=== PATIENT | male | born 1955 | race Caucasian/White ===

== ENCOUNTER 2016-05-20 06:21 | Day surgery (SDC) | payer OTHER ==
[2016-05-19 13:51] VITALS: BMI 20.0
[~2016-05-20] VITALS: Ht 180.3 cm; Wt 68.0 kg
[2016-05-20] VITALS (13 sets, daily range): BP systolic 113–142; BP diastolic 63–88; PULSE 50–70; RESP 10–20; Ht 180.3 cm; Wt 68.0 kg
[2016-05-20] MEDS ORDERED: LAMO100T83 PO (08:08)
[2016-05-20] MEDS ORDERED: GABA300C16 PO (08:08)
[2016-05-20] MEDS ORDERED: LIT300 PO (08:08)
[2016-05-20] MEDS ORDERED: ARIP5TAB7 PO (08:08)
--- NOTE | 2016-05-20 08:20 | HPN ---
Date/Time of Note Date/Time of Note DATE: 05/20/16 TIME: 08:20 Interval H&P Admission Note Pt. seen H&P reviewed: No system changes BRANDIE POLANCO MD May 20, 2016 08:20
[2016-05-20] MEDS ORDERED: BUPIVACAINE 0.25% (MPF) 30 ML INJ ONE (08:31)
[2016-05-20] MEDS ORDERED: MIDAZOLAM 1 MG/ML 2 ML INJ ONE (08:49)
[2016-05-20] MEDS ORDERED: FENTAnyl 50 MCG/ML VIAL ONE (08:49)
[2016-05-20] MEDS ORDERED: CEFAZOLIN 1 GM INJ ONE ×2 (08:59→09:45)
[2016-05-20] MEDS ORDERED: ONDANSETRON 4 MG INJ IV PRN ×2 (09:30→10:00)
[2016-05-20] MEDS ORDERED: DIPHENHYDRAMINE 50 MG INJ IV PRN (09:30)
[2016-05-20] MEDS ORDERED: METOCLOPRAMIDE 10 MG INJ IV PRN (09:30)
[2016-05-20] MEDS ORDERED: MEPERIDINE 25 MG INJ IV PRN (09:30)
[2016-05-20] MEDS ORDERED: HYDROmorphONE (0.2 MG/ML) 10ML SYG IV PRN ×2 (09:30)
[2016-05-20] MEDS ORDERED: METOCLOPRAMIDE 10 MG INJ ONE (09:35)
[2016-05-20] MEDS ORDERED: ONDANSETRON 4 MG INJ ONE (09:35)
[2016-05-20] MEDS ORDERED: GLYCOPYRROLATE 1 MG INJ ONE (09:39)
[2016-05-20] MEDS ORDERED: NEOSTIGMINE 3 MG/3 ML SYRINGE ONE (09:39)
[2016-05-20] MEDS ORDERED: LIDOCAINE 2% (SDV) 5 ML INJ ONE (09:39)
[2016-05-20] MEDS ORDERED: PROPOFOL 20 ML ONE (09:39)
[2016-05-20] MEDS ORDERED: ROCURONIUM 50 MG INJ ONE (09:39)
[2016-05-20] MEDS ORDERED: morphine 2 MG INJ IV PRN (10:00)
[2016-05-20] MEDS ORDERED: OXYCODONE/ACETAMINOPHEN (5/325) TAB PO PRN ×2 (10:00)
[2016-05-20] MEDS: FENTAnyl 50 MCG/ML VIAL IV PRN ×2 (10:22→10:34)
--- NOTE | 2016-05-20 10:41 | OPR ---
DATE OF OPERATION: 05/20/2016 PREOPERATIVE DIAGNOSES: Right inguinal hernia without obstruction. POSTOPERATIVE DIAGNOSIS: Right inguinal hernia without obstruction (indirect). OPERATION PERFORMED: 1. Repair with extra-large plug. 2. Right inguinal nerve block. SURGEON: Brandie Vera MD ANESTHESIA: General. ANESTHESIOLOGIST: Migue Montoya MD OPERATIVE REPORT: After satisfactory general anesthesia was achieved, the abdomen was prepped and d raped in the usual fashion. The right groin was entered through a 3.5 cm transverse suprapubic groi n incision down to the level of the external oblique, which was opened in the direction of its fiber s. The cord and nerve were retracted and preserved. The floor of the canal was intact. There was a large indirect sac. It was dissected to its base at the internal ring. The sac was reduced. The reduction was maintained by placement of an extra-large plug into the internal ring. This plug was secured to healthy fascia circumferentially with interrupted 3-0 Vicryl suture. Next, the flat por tion of the mesh was cut and fashioned to fit in the floor of the canal as an overlay. It was ancho red at the pubic tubercle with 2-0 Novafil, laterally to inguinal ligament with interrupted 2-0 Nova mayra, and medially to conjoined tendon with interrupted 2-0 Novafil. The mesh distal to the cord was reconstituted with a single suture of 3-0 Vicryl, creating a new internal ring of appropriate size. The cord and nerve were then replaced beneath the external oblique, which was closed with a runnin g 3-0 Vicryl suture. Next, a right inguinal nerve block was performed. Ten mL of 0.25% plain Rachell ine were injected into the fascia 1 cm medial and inferior to the right anterior iliac spine. Ten m ore mL of local anesthetic were injected into the wound. Doreen fascia was closed with interrupted 3-0 Vicryl suture and skin closed with running 4-0 subcuticular Vicryl. Operative blood loss less t parker 20 mL. Sponge and needle counts reported as correct x2. The patient tolerated the procedure we ll and without incident or complication. Dictated By: BRANDIE SHAH/CARLIN Conf#: [id number] DID#: [id number] CC: Andrew Yu MD;*EndCC*
--- NOTE | 2016-05-20 20:50 | RADRPT ---
Vent Rate: 49 bpm RR Interval: 0 msec SC Interval: 176 msec QRS Duration: 88 msec QT Interval: 398 msec QTC Interval: 359 msec P-R-T Hollis: 58 - 45 - 54 degrees Marked sinus bradycardia Abnormal ECG Electronically Signed By: [place] [id number]
== END 2016-05-20 11:22 | disposition home or self-care (01) ==
LOC: SDS 06:21
PROVIDERS: ATTEND Surgery
DX: K40.90 Unilateral inguinal hernia, without obstruction or gangrene, not specified as recurrent (principal)
CPT/HCPCS: 49505; 93005; C1781; J0690; J2250; J2405; J2710; J2765; J3010; Z7512; Z7610